=== PATIENT | female | born 1935 | race Caucasian/White ===

== ENCOUNTER → 2017-02-19 | Outpatient (CLI) | payer MEDICARE ==
[~2017-02-19] MED LIST: 00186-0372-20 IH; AMITRIPTYLINE75 MG PO; ASPIRIN E.C. 8181 MG PO; BIOTIN1 POW; CALCIUM 600600 MG PO; CLEOCIN HC150 MG/CAP PO; COZAAR 25MG25 MG/TAB PO; FEMARA PO; FLUTICASON0.05 MG/Ac NS; FOLIC ACID 11 MG/TA1 PO; GLUCOSAMINE & C1 CA1 PO; IRON1 POW; L-THYROXINE SO0.1 MG PO; LISINOPRIL-HYDR1 TA1 PO; LORTAB 5/500 501 TAB PO; MECLIZINE25 M1 PO; MULTIPLE VITAMI1 CAP PO; TYLENOL EXTRA500 M1 PO; TYLENOL PM 5001 CAP PO; ULTRAM 50MG TAB50 MG PO; [UNRECOGNIZED DRUG - OTHER] PO
== END ==
LOC: MC.RAD 10:15
DX: Z12.31 Encounter for screening mammogram for malignant neoplasm of breast (principal); Z85.3 Personal history of malignant neoplasm of breast

== ENCOUNTER 2018-02-19 09:26 | Day surgery (SDC) | payer MEDICARE ==
[~2018-02-19] VITALS: Ht 167.6 cm; Wt 78.1 kg
[2018-02-19 09:59] VITALS: BP 140/84; PULSE 101; TEMP 98.3
[2018-02-19] MEDS ORDERED: TREXALL10 MG PO (10:08)
[2018-02-19] MEDS ORDERED: 00186-0372-20 IH (10:10)
[2018-02-19] MEDS ORDERED: AMITRIPTYLINE H25 M1 PO (10:14)
[2018-02-19 12:35] VITALS: BP 124/72; PULSE 103; TEMP 98.5
[2018-02-19 12:50] VITALS: BP 124/66; PULSE 95
[2018-02-19 13:05] VITALS: BP 119/79; PULSE 95
== END 2018-02-19 13:19 | disposition home or self-care (01) ==
LOC: SDCO 09:26
DX: Z12.11 Encounter for screening for malignant neoplasm of colon (principal); Z86.010 Personal history of colon polyps; K64.0 First degree hemorrhoids; I10 Essential (primary) hypertension; E03.9 Hypothyroidism, unspecified; Z85.3 Personal history of malignant neoplasm of breast; Z95.810 Presence of automatic (implantable) cardiac defibrillator
CPT/HCPCS: OP; J2250; J2405; J3010; J7030

== ENCOUNTER → 2018-02-21 | Outpatient (CLI) | payer MEDICARE ==
[~2018-02-21] MED LIST changes: +AMITRIPTYLINE H25 M1 PO; +TREXALL10 MG PO
== END ==
LOC: MC.RAD 09:45
DX: Z12.31 Encounter for screening mammogram for malignant neoplasm of breast (principal); Z85.3 Personal history of malignant neoplasm of breast; Z92.3 Personal history of irradiation; Z98.890 Other specified postprocedural states; Z95.0 Presence of cardiac pacemaker

== ENCOUNTER 2018-09-30 08:57 | Inpatient (IN) | payer MEDICARE ==
[~2018-09-30] VITALS: Ht 167.6 cm; Wt 82.4 kg
[2018-09-30 10:01] VITALS: BP 139/86; PULSE 90; TEMP 99.1
[2018-09-30 10:07] LABS: MEAN CELL VOLUME 101 fl (80.0-100.0); MEAN CORPUSCULAR HEMOGLOBIN 35 pg (27.0-31.0); MEAN CORPUSCULAR HGB CONC 34 g/dl (33.0-37.0); MEAN PLATELET VOLUME 10.3 fl (7.4-10.4); PLATELET COUNT 246 K/mm3 (130-400); RED BLOOD COUNT 3.75 M/mm3 (4.10-5.30); REDCELL DISTRIBUTION WIDTH-CV 13.3 % (11.5-14.5)
[2018-09-30 10:10] LABS: PROTHROMBIN TIME 11.5 SECONDS (9.7-12.8)
[2018-09-30 10:16] LABS: ALBUMIN 4.1 gm/dL (3.5-5.0); BILIRUBIN,TOTAL 1.1 mg/dL (0.0-1.0); CREATININE, serum 0.8 mg/dL (0.52-1.25); POTASSIUM 4.2 mmol/L (3.4-5.0); TOTAL PROTEIN 7.4 gm/dL (6.4-8.2)
[2018-09-30 11:43] VITALS: BP 129/65; PULSE 94; TEMP 97.9
[2018-09-30 16:08] VITALS: BP 121/74; PULSE 126; TEMP 98.2
[2018-09-30 20:19] VITALS: BP 133/63; PULSE 78; TEMP 97.9
[2018-10-01] VITALS (7 sets, daily range): BP systolic 97–125; BP diastolic 53–82; PULSE 59–83; TEMP 97.5–98.6
[2018-10-01 07:22] LABS: BASO # 0.1 (0.0-0.2); EOS # 0.4 (0.0-0.7); EOS % 5.7 % (0-4.0); GRAN # 3.6 (1.4-6.5); GRAN % 52.3 % (42.2-75.2); HEMATOCRIT 37.5 % (37.0-47.0); HEMOGLOBIN 12.6 g/dl (12.5-16.0); LYMPH # 2.1 (1.2-3.4); MEAN CELL VOLUME 102 fl (80.0-100.0); MEAN CORPUSCULAR HEMOGLOBIN 34 pg (27.0-31.0); MEAN CORPUSCULAR HGB CONC 34 g/dl (33.0-37.0); MEAN PLATELET VOLUME 10.5 fl (7.4-10.4); MONO # 0.7 (0.1-0.6); MONO % 10.7 % (1.7-9.3); PLATELET COUNT 249 K/mm3 (130-400); RED BLOOD COUNT 3.67 M/mm3 (4.10-5.30); REDCELL DISTRIBUTION WIDTH-CV 13.7 % (11.5-14.5)
[2018-10-01 07:32] LABS: CREATININE, serum 0.83 mg/dL (0.52-1.25); POTASSIUM 3.9 mmol/L (3.4-5.0)
[2018-10-02 00:01] VITALS: BP 107/51; PULSE 69; TEMP 97.6
[2018-10-02 03:53] VITALS: BP 116/57; PULSE 60; TEMP 97.5
[2018-10-02 06:12] LABS: BASO # 0.1 (0.0-0.2); BASO % 1.1 % (0.0-2.0); EOS # 0.4 (0.0-0.7); GRAN # 3.1 (1.4-6.5); GRAN % 47.7 % (42.2-75.2); HEMOGLOBIN 11.9 g/dl (12.5-16.0); LYMPH # 2.2 (1.2-3.4); LYMPH % 33.9 % (20.0-51.0); MEAN CELL VOLUME 103 fl (80.0-100.0); MEAN CORPUSCULAR HEMOGLOBIN 35 pg (27.0-31.0); MEAN CORPUSCULAR HGB CONC 34 g/dl (33.0-37.0); MEAN PLATELET VOLUME 10.4 fl (7.4-10.4); MONO # 0.7 (0.1-0.6); MONO % 11.1 % (1.7-9.3); PLATELET COUNT 226 K/mm3 (130-400); RED BLOOD COUNT 3.44 M/mm3 (4.10-5.30); REDCELL DISTRIBUTION WIDTH-CV 13.3 % (11.5-14.5)
[2018-10-02 06:18] LABS: CALCIUM 8.9 mg/dL (8.4-10.2); CREATININE, serum 0.83 mg/dL (0.52-1.25); MAGNESIUM 1.9 mg/dL (1.6-2.3)
[2018-10-02 06:24] LABS: HEMATOCRIT 35.3 % (37.0-47.0)
[2018-10-02 07:10] VITALS: BP 124/66; PULSE 57; TEMP 97.7
[2018-10-02] MEDS ORDERED: BETAPACE 80MG80 MG PO (09:47)
== END 2018-10-02 11:27 | disposition home or self-care (01) | DRG 309 ==
LOC: MEDICAL 08:57
PROVIDERS: Internal Medicine Cardiovascular Disease
DX: I47.2 Ventricular tachycardia (principal); I42.9 Cardiomyopathy, unspecified; D86.2 Sarcoidosis of lung with sarcoidosis of lymph nodes; I10 Essential (primary) hypertension; Z95.810 Presence of automatic (implantable) cardiac defibrillator; E78.5 Hyperlipidemia, unspecified; Z85.3 Personal history of malignant neoplasm of breast; I08.1 Rheumatic disorders of both mitral and tricuspid valves; M79.7 Fibromyalgia

== ENCOUNTER 2019-01-15 13:22 | Emergency (ER) | payer MEDICARE ==
[~2019-01-15] VITALS: Ht 167.6 cm; Wt 76.8 kg
[~2019-01-15 13:22] MED LIST changes: +BETAPACE 80MG80 MG PO
[2019-01-15] MEDS ORDERED: IMURAN 50MG TAB50 MG PO (13:46)
[2019-01-15 14:44] LABS: BASO % 0.5 % (0.0-2.0); EOS % 0.1 % (0-4.0); GRAN # 5.9 (1.4-6.5); GRAN % 78.2 % (42.2-75.2); HEMATOCRIT 44.1 % (37.0-47.0); HEMOGLOBIN 14.8 g/dl (12.5-16.0); LYMPH # 0.9 (1.2-3.4); LYMPH % 12.4 % (20.0-51.0); MEAN CELL VOLUME 97 fl (80.0-100.0); MEAN CORPUSCULAR HEMOGLOBIN 33 pg (27.0-31.0); MEAN CORPUSCULAR HGB CONC 34 g/dl (33.0-37.0); MONO # 0.6 (0.1-0.6); MONO % 8.4 % (1.7-9.3); PLATELET COUNT 233 K/mm3 (130-400); RED BLOOD COUNT 4.56 M/mm3 (4.10-5.30); REDCELL DISTRIBUTION WIDTH-CV 12.8 % (11.5-14.5)
[2019-01-15 14:53] VITALS: TEMP 99.4
[2019-01-15 14:54] LABS: ALBUMIN 4.6 gm/dL (3.5-5.0); BILIRUBIN,TOTAL 0.8 mg/dL (0.0-1.0); CALCIUM 9.1 mg/dL (8.4-10.2); CREATININE, serum 0.79 mg/dL (0.52-1.25); POTASSIUM 3.7 mmol/L (3.4-5.0); TOTAL PROTEIN 8.9 gm/dL (6.4-8.2)
[2019-01-15] MEDS ORDERED: ZOFRAN ODT4 MG PO (15:27)
[2019-01-15] MEDS ORDERED: TAMIFLU 75MG75 MG PO (15:27)
[2019-01-15 17:00] VITALS: BP 144/79; PULSE 98
== END 2019-01-15 17:00 | disposition home or self-care (01) ==
LOC: COL.ER 13:22
PROVIDERS: Family Medicine
DX: J11.1 Influenza due to unidentified influenza virus with other respiratory manifestations (principal); D86.9 Sarcoidosis, unspecified; Z79.891 Long term (current) use of opiate analgesic
CPT/HCPCS: J2405; J7030

== ENCOUNTER → 2019-04-02 | Outpatient (CLI) | payer MEDICARE ==
[~2019-04-02] MED LIST changes: +IMURAN 50MG TAB50 MG PO; +TAMIFLU 75MG75 MG PO; +ZOFRAN ODT4 MG PO
== END ==
LOC: MC.RAD 08:13
DX: Z12.31 Encounter for screening mammogram for malignant neoplasm of breast (principal); Z98.890 Other specified postprocedural states; Z98.82 Breast implant status; Z95.0 Presence of cardiac pacemaker; Z85.3 Personal history of malignant neoplasm of breast

== ENCOUNTER → 2020-04-06 | Outpatient (CLI) | payer MEDICARE | LOC: MC.RAD 04-05 11:00 | DX: Z12.31 Encounter for screening mammogram for malignant neoplasm of breast (principal); Z85.3 Personal history of malignant neoplasm of breast; Z90.11 Acquired absence of right breast and nipple ==